=== PATIENT | female | born 1985 ===

== ENCOUNTER 2017-12-12 15:32 | Emergency (ER) | payer SELFPAY ==
[~2017-12-12] VITALS: Ht 177.8 cm; Wt 131.8 kg
[2017-12-12 15:35] VITALS: BP 162/98
== END 2017-12-13 01:18 | disposition left against medical advice (07) ==
LOC: ER 15:32
DX: Z53.21 Procedure and treatment not carried out due to patient leaving prior to being seen by health care provider (principal)
CPT/HCPCS: 93005; 99281